=== PATIENT | female | born 1960 | race Hispanic/Latino ===

== ENCOUNTER 2016-09-27 16:45 | Emergency (ER) | payer OTHER ==
[2016-09-27 17:01] VITALS: BP 144/89; PULSE 83; RESP 16; TEMP 98.2; O2SAT 98
--- NOTE | 2016-09-27 17:17 | ED PDOC ---
Lower Extremity Pain/Injury Time Seen by Provider: 09/27/16 17:00 Chief Complaint (Nursing): Lower Extremity Problem/Injury Chief Complaint (Provider): right ankle pain History Per: Patient History/Exam Limitations: no limitations Onset/Duration Of Symptoms: Days (x 4) Current Symptoms Are (Timing): Still Present Additional Complaint(s): Franci Billings is a 56 year old female, with no previous medical history, who presents to the ED with complaints of atraumatic right ankle pain ongoing for the past 4 days. Pt reports ankle feels weak. Pt denies any radiation of the pain, chest pain or shortness of breath. Pt denies self medicating to alleviate the symptoms. Of note, pt reports to breaking same ankle "years ago". PMD: Dr. Haley Past Medical History Reviewed: Historical Data, Nursing Documentation, Vital Signs Vital Signs: Last Vital Signs Temp 98.2 F 09/27/16 16:56 Pulse 83 09/27/16 16:56 Resp 16 09/27/16 16:56 BP 144/89 09/27/16 16:56 Pulse Ox 98 09/27/16 16:56 - Medical History PMH: No Chronic Diseases - Surgical History Surgical History: Appendectomy - Family History Family History: States: No Known Family Hx - Home Medications Home Medications: Ambulatory Orders Medication Instructions Recorded Naproxen [Naprosyn Tab] 1 tab PO Q8 PRN #21 tab 09/27/16 - Allergies Allergies/Adverse Reactions: Allergies Allergy/AdvReac Type Severity Reaction Status Date / Time No Known Allergies Allergy Verified 09/27/16 16:56 Review of Systems ROS Statement: Except As Marked, All Systems Reviewed And Found Negative Cardiovascular: Negative for: Chest Pain Respiratory: Negative for: Shortness of Breath Musculoskeletal: Positive for: Foot Pain (right ankle pain ). Negative for: Other (calf pain ) Physical Exam - Reviewed Nursing Documentation Reviewed: Yes Vital Signs Reviewed: Yes - Physical Exam Appears: Positive for: Well, Non-toxic, No Acute Distress Pulses-Dorsalis Pedis (R): 2+ Extremity: Positive for: Capillary Refill (< 2 seconds ), Swelling (lateral malleolus of the right foot ). Negative for: Tenderness (bony tenderness. No tenderness to the foot of the right foot ), Calf Tenderness, Deformity Neurologic/Psych: Positive for: Alert, Oriented - ECG O2 Sat by Pulse Oximetry: 98 (RA) Pulse Ox Interpretation: Normal - Progress ED Course And Treament: XRY OF ANKLE: NO FX PATIENT DOES NOT WANT CRUTCHES PLACED IN AIR CAST Medical Decision Making Medical Decision Making: Initial Impression: Ankle Injury Initial Plan: * x-ray right ankle * reevaluation Scribe Attestation: Documented by Renetta Heard, acting as a scribe for Abel Mcdowell PA-C. Provider Scribe Attestation: All medical record entries made by the Scribe were at my direction and personally dictated by me. I have reviewed the chart and agree that the record accurately reflects my personal performance of the history, physical exam, medical decision making, and the department course for this patient. I have also personally directed, reviewed, and agree with the discharge instructions and disposition. Disposition - Clinical Impression Clinical Impression: Ankle injury - Patient ED Disposition Is Patient to be Admitted: No - Disposition Referrals: Podiatry Clinic [Outside] Disposition: Routine/Home Disposition Time: 18:20 Condition: FAIR Prescriptions: Naproxen [Naprosyn Tab] 1 tab PO Q8 PRN #21 tab PRN Reason: Pain, Moderate (4-7) Instructions: Ankle Sprain (ED) Forms: [facility] ED School/Work Excuse
--- NOTE | 2016-09-28 10:57 | RAD ---
PROCEDURE: Right Ankle Radiographs. HISTORY: ankle injury COMPARISON: None available FINDINGS: BONES: No acute displaced fracture. Small calcaneal enthesophyte and heel spur. JOINTS: No dislocation. SOFT TISSUES: Soft tissue swelling. No evidence of radiopaque foreign body. OTHER FINDINGS: None. IMPRESSION: Soft tissue swelling. No acute displaced fracture, dislocation, or significant joint effusion identified. If symptoms persist or if there is clinical concern, x-ray follow-up in 7-10 days should be considered.
== END 2016-09-27 18:31 | disposition home or self-care (01) ==
LOC: H.ER 16:45
DX: S99.911A Unspecified injury of right ankle, initial encounter (principal); X50.9XXA Other and unspecified overexertion or strenuous movements or postures, initial encounter; Y92.89 Other specified places as the place of occurrence of the external cause

== ENCOUNTER 2018-09-21 21:56 | Emergency (ER) | payer OTHER ==
[2018-09-21 22:05] VITALS: RESP 18; TEMP 98.2; O2SAT 97
[2018-09-21 23:20] LABS: BASO % 0.6 % (0.0-2.0); EOS # 0.3 K/uL (0.0-0.7); EOS % 3.1 % (0.0-4.0); HEMOGLOBIN 14.8 g/dL (12.0-16.0); LYMPH # 2.6 K/uL (1.0-4.3); LYMPH % 30.8 % (20.0-40.0); MEAN CELL VOLUME 93.8 fl (81.0-99.0); MEAN CORPUSCULAR HEMOGLOBIN 31.6 pg (27.0-31.0); MEAN CORPUSCULAR HGB CONC 33.7 g/dL (33.0-37.0); MEAN PLATELET VOLUME 7.7 fl (7.2-11.7); MONO # 0.5 K/uL (0.0-0.8); MONO % 5.8 % (0.0-10.0); NEUT # 5.1 K/uL (1.8-7.0); NEUT % 59.7 % (50.0-75.0); NRBC % 0.1 % (0.0-0.0); RBC 4.68 Mil/uL (3.80-5.20); RED CELL DISTRIBUTION WIDTH 14.7 % (11.5-14.5); WHITE BLOOD COUNT 8.6 K/uL (4.8-10.8)
[2018-09-21 23:27] LABS: BLOOD UREA NITROGEN 9 mg/dl (7-17)
[2018-09-21 23:56] LABS: GFR NON-AFRICAN AMERICAN > 60
[2018-09-22 00:23] VITALS: BP 112/58
--- NOTE | 2018-09-22 00:23 | ED PDOC ---
HPI: Chest Pain Time Seen by Provider: 09/21/18 22:13 Chief Complaint (Nursing): Chest Pain Chief Complaint (Provider): Chest Pain History Per: Patient History/Exam Limitations: no limitations Onset/Duration Of Symptoms: Days (x3) Additional Complaint(s): 58 years old female with no significant PMHx presents to ER for evaluation of left sided chest pain associated with occasional shortness of breath for the past 3 days. Patient reports pain worsens when she presses on her chest. She states she was told by her PMD that she has borderline high blood pressure. Patient states pain has been constant for 3 to 4 hours prior to arrival to ED. She denies radiation of pain or sweats. Active smoker. PMD: Valdemra Haley Past Medical History Reviewed: Historical Data, Nursing Documentation, Vital Signs Vital Signs: Last Vital Signs Temp 98.2 F 09/21/18 22:00 Pulse 82 09/21/18 22:00 Resp 18 09/21/18 22:00 BP 156/76 H 09/21/18 22:00 Pulse Ox 97 09/21/18 22:00 - Medical History PMH: HTN - Surgical History Surgical History: Appendectomy - Family History Family History: States: Unknown Family Hx - Social History Current smoker - smoking cessation education provided: Yes Alcohol: None Drugs: Denies - Home Medications Home Medications: Ambulatory Orders Medication Instructions Recorded Naproxen [Naprosyn Tab] 1 tab PO Q8 PRN #21 tab 09/27/16 - Allergies Allergies/Adverse Reactions: Allergies Allergy/AdvReac Type Severity Reaction Status Date / Time dill oil Allergy RASH Verified 09/21/18 22:00 Review of Systems ROS Statement: Except As Marked, All Systems Reviewed And Found Negative Constitutional: Negative for: Sweats Cardiovascular: Positive for: Chest Pain Respiratory: Positive for: Shortness of Breath (occasional) Physical Exam - Reviewed Nursing Documentation Reviewed: Yes Vital Signs Reviewed: Yes - Physical Exam Appears: Positive for: Well, No Acute Distress Head Exam: Positive for: ATRAUMATIC, NORMOCEPHALIC Skin: Positive for: Normal Color, Warm, Dry Eye Exam: Positive for: Normal appearance, EOMI, PERRL ENT: Positive for: Normal ENT Inspection Neck: Positive for: Normal, Painless ROM, Supple Cardiovascular/Chest: Positive for: Regular Rate, Rhythm. Negative for: Murmur Respiratory: Positive for: Normal Breath Sounds, Other (tenderness to palpation of upper chest wall). Negative for: Respiratory Distress Gastrointestinal/Abdominal: Positive for: Normal Exam, Soft. Negative for: Tenderness Back: Positive for: Normal Inspection. Negative for: L CVA Tenderness, R CVA Tenderness Extremity: Positive for: Normal ROM. Negative for: Pedal Edema, Deformity Neurological/Psych: Positive for: Awake, Alert, Oriented (x3) - Laboratory Results Result Diagrams: 09/21/18 22:43 09/21/18 23:20 Lab Results: Troponin I < 0.0120 ng/mL (0.00-0.120) 09/21/18 23:20 - ECG ECG Rhythm: Positive for: Sinus Rhythm. Negative for: ST/T Changes Rate: 83 O2 Sat by Pulse Oximetry: 97 (RA) Pulse Ox Interpretation: Normal Medical Decision Making Medical Decision Making: Time: 2229 A/P: Atypical chest pain likely costochondritis vs. musculoskeletal vs. pleurisy from smoking --Will obtain cardiac bio markers to further risk verify patient Time: 0000 --Patient reports improvement in symptoms --Intensive precautions provided to patient on smoking and advised patient to followup with PMD --Very well appearing on discharge. Scribe Attestation: Documented by Kristin Reddy, acting as a scribe for Chris Rabago MD. Provider Scribe Attestation: All medical record entries made by the Scribe were at my direction and personally dictated by me. I have reviewed the chart and agree that the record accurately reflects my personal performance of the history, physical exam, medical decision making, and the department course for this patient. I have also personally directed, reviewed, and agree with the discharge instructions and disposition. Disposition - Clinical Impression Clinical Impression: Atypical chest pain - Patient ED Disposition Is Patient to be Admitted: No Counseled Patient/Family Regarding: Studies Performed, Diagnosis, Need For Followup, Smoking Cessation - Disposition Referrals: Valdemar Haley MD [Family Provider] - Disposition: Routine/Home Disposition Time: 00:00 Condition: IMPROVED Instructions: Smoking: Not Just Harmful to Your Lungs and Heart, Chest Pain That Is Not Caused by the Heart (DC), Quitting Smoking Forms: [employer] ([place]azi)
[2018-09-22 00:30] VITALS: PULSE 83
--- NOTE | 2018-09-22 11:20 | RAD ---
Date of service: 09/21/2018 HISTORY: chest pain COMPARISON: Chest radiograph dated 07/22/2015 TECHNIQUE: Chest PA and lateral views FINDINGS: LUNGS: No active pulmonary disease. PLEURA: No significant pleural effusion identified. No pneumothorax apparent. CARDIOVASCULAR: Aortic atherosclerotic calcifications. Cardiomediastinal silhouette stably enlarged. OSSEOUS STRUCTURES: Unchanged. VISUALIZED UPPER ABDOMEN: Normal. OTHER FINDINGS: None. IMPRESSION: No active disease.
--- NOTE | 2018-09-22 20:35 | CARD ---
APPROVED REPORT Date of service: 09/21/2018 EKG Measurement Heart [id number] <Conclusion> Normal sinus rhythm Normal ECG
== END 2018-09-22 00:23 | disposition home or self-care (01) ==
LOC: H.ER 21:56
DX: R07.89 Other chest pain (principal); I10 Essential (primary) hypertension; F17.200 Nicotine dependence, unspecified, uncomplicated
CPT/HCPCS: 71046; 80048; 84484; 85025; 93005; 96374; 99283; J1885